=== PATIENT | female | born 1990 | race Caucasian/White ===

== ENCOUNTER 2016-06-26 22:40 | Emergency (ER) | payer OTHER ==
[2016-06-26 22:52] VITALS: TEMP 98.2
[2016-06-27] MEDS ORDERED: METOCLOPRAMIDE 10 MG/2 ML VIAL IVP ONE (00:30)
[2016-06-27] MEDS ORDERED: NS 1,000 ML IV ONE (00:30)
[2016-06-27] MEDS ORDERED: ONDANSETRON 4 MG/2 ML VIAL IVP ONE (00:30)
[2016-06-27 02:14] LABS: ALANINE AMINOTRANSFERASE 27 IU/L (9-52); ALBUMIN 3.6 g/dL (3.5-5.0); ALKALINE PHOSPHATASE 30 IU/L (38-126); ANION GAP 9 mEq/L (8-16); ASPARTATE AMINOTRANSFERASE 21 IU/L (14-46); BILIRUBIN-CONJUGATED 0.4 mg/dL (0.0-0.5); BILIRUBIN-UNCONJUGATED 0.6 mg/dL (0.0-1.1); CARBON DIOXIDE 24 mEq/l (22-31); CHLORIDE 106 mEq/L (97-110); CREATININE 0.7 mg/dL (0.6-1.0); GLOMERULAR FILTRATION RATE > 60; GLUCOSE 74 mg/dL (70-100); POTASSIUM 3.7 mEq/L (3.5-5.2); SODIUM 139 mEq/L (134-144); TOTAL PROTEIN 6.2 g/dL (6.3-8.2)
[2016-06-27 02:26] LABS: % IMMATURE GRANULYOCYTES 0.2 % (0.0-1.1); ABSOLUTE IMMATURE GRANULOCYTES 0.02 10^3/uL (0.00-0.10); ADD DIFF? NO; ADD MORPH? NO; ADD SCAN? NO; ATYPICAL LYMPHOCYTE FLAG 20 (0-99); FRAGMENT RBC FLAG 0 (0-99); HEMATOCRIT 37.4 % (38.0-47.0); HEMOGLOBIN 12.6 g/dL (12.6-16.3); LEFT SHIFT FLG 0 (0-99); LIPEMIA HEMOLYSIS FLAG 80 (0-99); MEAN CELL HEMOGLOBIN 31.6 pg (27.9-34.1); MEAN CELL HEMOGLOBIN CONCENTR. 33.7 g/dL (32.4-36.7); MEAN CELL VOLUME 93.7 fL (81.5-99.8); MEAN PLATELET VOLUME 10.5 fL (8.7-11.7); PLATELET CLUMPS FLAG 20 (0-99); PLATELET COUNT 264 10^3/uL (150-400); RED BLOOD CELL COUNT 3.99 10^6/uL (4.18-5.33); RED CELL DISTRIBUTION WIDTH 12.2 % (11.5-15.2)
--- NOTE | 2016-06-27 03:34 | EDPHY ---
H & P Stated Complaint: N,V,D, ABD PAIN SEEN AT 06/22 FOR SAME Time Seen by Provider: 06/27/16 00:02 HPI/ROS: HPI The patient presents with nausea and vomiting which have been present for the last 3 weeks. It is making it difficult for her to eat or drink anything over the last few days. She has only been able to take small amounts of fluid she says. She says after she takes something by mouth, she often vomits. This is not associated with any vomiting. She was seen at a hospital in [place] a few days ago and given IV fluids with some improvement in her symptoms, however they have returned. She is also complaining of vaginal pain which she says feels like a cramping in her vagina without any discharge that she is aware of. She did have unprotected sex about 2 weeks ago before her symptoms started. REVIEW OF SYSTEMS Constitutional: No fever, no chills. Eyes: No discharge. ENT: No sore throat. Cardiovascular: No chest pain, no palpitations. Respiratory: No cough, no shortness of breath. Gastrointestinal: See HPI Genitourinary: No hematuria. Musculoskeletal: No back pain. Skin: No rashes. Neurological: No headache. PMHx: Major depressive disorder, has required ECT Soc Hx: Housed, denies drug use PHYSICAL General Appearance: Alert, no distress, poor eye contact, slow speech Eyes: Pupils equal and round no pallor or injection ENT, Mouth: Mucous membranes moist Respiratory: There are no retractions, lungs are clear to auscultation Cardiovascular: Regular rate and rhythm Gastrointestinal: Abdomen is soft and non-tender, no masses, bowel sounds normal Genitourinary demonstrates normal appearing vaginal mucosa and external vagina, cervix is normal Neurological: A&O, moves all extremities Skin: Warm and dry, no rashes Musculoskeletal: Neck is supple non tender Extremities: symmetrical, full range of motion Psychiatric: Patient is oriented X 3, there is no agitation Source: Patient Exam Limitations: No limitations - Personal History LMP (Females 10-55): Now Current Tetanus/Diphtheria Vaccine: Yes Current Tetanus Diphtheria and Acellular Pertussis (TDAP): Yes - Medical/Surgical History Hx Asthma: No Hx Chronic Respiratory Disease: No Hx Diabetes: No Hx Cardiac Disease: No Hx Renal Disease: No Hx Cirrhosis: No Hx Alcoholism: No Hx HIV/AIDS: No Hx Splenectomy or Spleen Trauma: No Other PMH: depression/bipolar, anxiety, BPD, ACL surgery, spinal fusion, neck fx - Social History Smoking Status: Never smoked Constitutional: Initial Vital Signs Temperature (C) 36.8 C 06/26/16 22:47 Heart Rate 52 L 06/26/16 22:47 Respiratory Rate 16 06/26/16 22:47 Blood Pressure 102/64 06/26/16 22:47 O2 Sat (%) 100 06/26/16 22:47 O2 Delivery Mode Room Air Allergies/Adverse Reactions: cefaclor [From Ceclor] Allergy (Verified 06/26/16 22:52) Sulfa (Sulfonamide Antibiotics) Allergy (Verified 06/26/16 22:52) Home Medications: Medication Instructions Recorded Bimatoprost [Latisse] 3 ml TP HS 01/09/16 Divalproex ER [Depakote ER 500 MG 500 mg PO HS 01/09/16 (*)] Gabapentin [Neurontin 300 MG (*)] 300 mg PO TID 01/09/16 Lou Root 550 mg PO DAILY PRN 01/09/16 Herbals/Supplements -Info Only 1 ea PO DAILY 01/09/16 [place] Carbonate ER [Lithobid 300 300 mg PO BID 01/09/16 mg (*)] Vitamin A/Vit C/Zinc/Propolis 15 mg PO PRN PRN 01/09/16 [Zinc 15 mg Lozenges] Lurasidone HCl [Latuda] 40 mg PO DAILY@0800 #30 tab 01/11/16 Promethazine HCl [Phenergan 12.5mg 12.5 mg PO Q12H PRN #10 tablet 06/27/16 tab] Medical Decision Making Differential Diagnosis: This is a 25-year-old female with history of major depressive disorder who presents from home with 3 weeks of progressive nausea and vomiting. On exam, she is well-appearing with a benign abdominal exam. She appears well hydrated. Differential diagnosis includes viral gastroenteritis, toxin mediated enterocolitis, lithium toxicity, less likely [employer] pathology given no focal neurologic deficits or headache. In the emergency room, patient was given IV fluids and observed for several hours. She had no vomiting here. Labs were checked and were unremarkable except for a slightly elevated lithium level which I doubt is the cause of her symptoms. She felt better in the ER. I will discharge her with a prescription for Phenergan. Have asked her to follow up with her primary care doctor. - Data Points Laboratory Results: Laboratory Results 06/27/16 02:20 06/27/16 01:27 06/27/16 06/27/16 06/27/16 04:10 03:40 02:20 WBC RBC Hgb Hct MCV MCH MCHC RDW Plt Count MPV Neut % (Auto) Lymph % (Auto) [place] % (Auto) Eos % (Auto) Baso % (Auto) Nucleat RBC Rel Count Absolute Neuts (auto) Absolute Lymphs (auto) Absolute Monos (auto) Absolute Eos (auto) Absolute Basos (auto) Absolute Nucleated RBC Immature Gran % Immature Gran # Sodium Potassium Chloride Carbon Dioxide Anion Gap BUN Creatinine Estimated GFR Glucose Calcium Total Bilirubin Conjugated Bilirubin Unconjugated Bilirubin AST ALT Alkaline Phosphatase Total Protein Albumin Lipase Beta HCG, Qual Urine Color YELLOW Urine Appearance CLEAR Urine pH 7.0 (5.0-7.5) Ur Specific [place] 1.003 (1.002-1.030) Urine Protein NEGATIVE (NEGATIVE) Urine Ketones NEGATIVE (NEGATIVE) Urine Blood 1+ H (NEGATIVE) Urine Nitrate NEGATIVE (NEGATIVE) Urine Bilirubin NEGATIVE (NEGATIVE) Urine Urobilinogen NEGATIVE EU EU (0.2-1.0) Ur Leukocyte Esterase NEGATIVE (NEGATIVE) Urine RBC 1-3 /hpf /hpf (0-3) Urine WBC 1-3 /hpf /hpf (0-3) Ur Epithelial Cells TRACE /lpf /lpf (NONE-1+) Urine Glucose NEGATIVE (NEGATIVE) [place] 1.5 mEq/L H mEq/L (0.6-1.2) C.trachomatis RNA (TMA) Pending N.gonorrhoeae RNA (TMA) Pending 06/27/16 06/27/16 06/27/16 02:20 02:20 01:27 WBC 10.44 10^3/uL H 10^3/uL (3.80-9.50) RBC 3.99 10^6/uL L 10^6/uL (4.18-5.33) Hgb 12.6 g/dL g/dL (12.6-16.3) Hct 37.4 % L % (38.0-47.0) MCV 93.7 fL fL (81.5-99.8) MCH 31.6 pg pg (27.9-34.1) MCHC 33.7 g/dL g/dL (32.4-36.7) RDW 12.2 % % (11.5-15.2) Plt Count 264 10^3/uL 10^3/uL (150-400) MPV 10.5 fL fL (8.7-11.7) Neut % (Auto) 44.6 % % (39.3-74.2) Lymph % (Auto) 42.9 % % (15.0-45.0) [place] % (Auto) 8.1 % % (4.5-13.0) Eos % (Auto) 3.8 % % (0.6-7.6) Baso % (Auto) 0.4 % % (0.3-1.7) Nucleat RBC Rel Count 0.0 % % (0.0-0.2) Absolute Neuts (auto) 4.65 10^3/uL 10^3/uL (1.70-6.50) Absolute Lymphs (auto) 4.48 10^3/uL H 10^3/uL (1.00-3.00) Absolute Monos (auto) 0.85 10^3/uL H 10^3/uL (0.30-0.80) Absolute Eos (auto) 0.40 10^3/uL 10^3/uL (0.03-0.40) Absolute Basos (auto) 0.04 10^3/uL 10^3/uL (0.02-0.10) Absolute Nucleated RBC 0.00 10^3/uL 10^3/uL (0-0.01) Immature Gran % 0.2 % % (0.0-1.1) Immature Gran # 0.02 10^3/uL 10^3/uL (0.00-0.10) Sodium Potassium Chloride Carbon Dioxide Anion Gap BUN Creatinine Estimated GFR Glucose Calcium Total Bilirubin Conjugated Bilirubin Unconjugated Bilirubin AST ALT Alkaline Phosphatase Total Protein Albumin Lipase Beta HCG, Qual NEGATIVE REJ Urine Color Urine Appearance Urine pH Ur Specific [place] Urine Protein Urine Ketones Urine Blood Urine Nitrate Urine Bilirubin Urine Urobilinogen Ur Leukocyte Esterase Urine RBC Urine WBC Ur Epithelial Cells Urine Glucose [place] C.trachomatis RNA (TMA) N.gonorrhoeae RNA (TMA) 06/27/16 06/27/16 01:27 01:27 WBC REJ RBC REJ Hgb REJ Hct REJ MCV REJ MCH REJ MCHC REJ RDW REJ Plt Count REJ MPV REJ Neut % (Auto) REJ Lymph % (Auto) REJ [place] % (Auto) REJ Eos % (Auto) REJ Baso % (Auto) REJ Nucleat RBC Rel Count REJ Absolute Neuts (auto) REJ Absolute Lymphs (auto) REJ Absolute Monos (auto) REJ Absolute Eos (auto) REJ Absolute Basos (auto) REJ Absolute Nucleated RBC REJ Immature Gran % REJ Immature Gran # REJ Sodium 139 mEq/L mEq/L (134-144) Potassium 3.7 mEq/L mEq/L (3.5-5.2) Chloride 106 mEq/L mEq/L (97-110) Carbon Dioxide 24 mEq/l mEq/l (22-31) Anion Gap 9 mEq/L mEq/L (8-16) BUN 3 mg/dL L mg/dL (7-23) Creatinine 0.7 mg/dL mg/dL (0.6-1.0) Estimated GFR > 60 Glucose 74 mg/dL mg/dL (70-100) Calcium 9.0 mg/dL mg/dL (8.5-10.4) Total Bilirubin 1.0 mg/dL mg/dL (0.1-1.4) Conjugated Bilirubin 0.4 mg/dL mg/dL (0.0-0.5) Unconjugated Bilirubin 0.6 mg/dL mg/dL (0.0-1.1) AST 21 IU/L IU/L (14-46) ALT 27 IU/L IU/L (9-52) Alkaline Phosphatase 30 IU/L L IU/L (38-126) Total Protein 6.2 g/dL L g/dL (6.3-8.2) Albumin 3.6 g/dL g/dL (3.5-5.0) Lipase 108.0 IU/L IU/L (23-300) Beta HCG, Qual Urine Color Urine Appearance Urine pH Ur Specific [place] Urine Protein Urine Ketones Urine Blood Urine Nitrate Urine Bilirubin Urine Urobilinogen Ur Leukocyte Esterase Urine RBC Urine WBC Ur Epithelial Cells Urine Glucose [place] C.trachomatis RNA (TMA) N.gonorrhoeae RNA (TMA) Medications Given: Discontinued Medications Sodium Chloride (Ns) 1,000 mls @ 0 mls/hr IV ONCE ONE PRN Reason: Wide Open Stop: 06/27/16 00:31 Last Admin: 06/27/16 01:41 Dose: 1,000 mls Metoclopramide HCl (Reglan Injection) 10 mg IVP EDNOW ONE Stop: 06/27/16 00:31 Last Admin: 06/27/16 01:41 Dose: 10 mg Ondansetron HCl (Zofran) 4 mg IVP EDNOW ONE Stop: 06/27/16 00:31 Last Admin: 06/27/16 01:41 Dose: 4 mg Departure - Departure Disposition: Home, Routine, Self-Care Clinical Impression: Severe major depression, Nausea & vomiting Condition: Good Instructions: Acute Nausea and Vomiting (ED) Additional Instructions: Please make sure to drink plenty of fluids, clear liquids are recommended. Referrals: Sara Teixeira [Primary Care Provider] - As per Instructions Prescriptions: Promethazine HCl [Phenergan 12.5mg tab] 12.5 mg PO Q12H PRN #10 tablet PRN Reason: Nausea/Vomiting, Can'T Take Po
[2016-06-27 03:44] LABS: LITHIUM 1.5 mEq/L (0.6-1.2)
[2016-06-27 03:55] VITALS: BP 103/60; PULSE 63; RESP 16; O2SAT 94
[2016-06-27 04:26] LABS: COLOR YELLOW; LEUKOCYTE ESTERASE,URINE NEGATIVE (NEGATIVE); NITRITE,URINE NEGATIVE (NEGATIVE)
[2016-06-27 13:15] LABS: CHLAMYDIA AMPLIFICATION GENPRB NEGATIVE (NEGATIVE)
== END 2016-06-27 04:14 | disposition home or self-care (01) ==
DX: R11.2 Nausea with vomiting, unspecified (principal); F32.2 Major depressive disorder, single episode, severe without psychotic features
CPT/HCPCS: 96374; J2405; J2765

== ENCOUNTER 2016-09-23 16:45 | Inpatient (IN) | payer OTHER ==
--- NOTE | 2016-09-23 18:11 | SOAPPROG ---
SOAP Progress Note Assessment/Plan: Assessment:Patient with bipolar disorder type II most recent episode depressed and borderline personality disorder reporting constant SI, but she recently attempted suicide after her boyfriend broke up with her. She has abandonment issues. She has been working on DBT and CBT skills with her private psychologist , but she reports not remembering any after previously learning them at [facility] where everyone on the staff, especially the psychiatrist, were incompetent. She left the interview when she reportedly heard her parents voices. They had come to visit. Plan: Will encourage to relearn some DBT skills or at least to use the skills she has been working with her therapist on. Will continue current medications. 09/23/16 18:07 09/23/16 18:11 Subjective: See dictation. Objective: Vital Signs Temp Pulse Resp BP Pulse Ox 36.5 C 51 L 14 119/56 L 99 09/23/16 17:17 09/23/16 17:17 09/23/16 17:17 09/23/16 17:17 09/23/16 17:17 ICD10 Worksheet Patient Problems: Problems Problem Status Onset Severe major depression Acute
[2016-09-23] MEDS ORDERED: OLANZapine DISINTEGR 10 MG TAB PO PRN (18:13)
[2016-09-23] MEDS ORDERED: MAGNESIUM HYDROXIDE 30 ML UDCUP PO PRN (18:13)
[2016-09-23] MEDS ORDERED: MAG HYDROX/AL HYDROX/SIMETH 30 ML UDCUP PO PRN (18:13)
[2016-09-23] MEDS ORDERED: GABAPENTIN 300 MG CAP ONE (19:55)
[2016-09-23] MEDS: GABAPENTIN 300 MG CAP PO SCH (19:56)
[2016-09-23] MEDS: LITHIUM CARBONATE 300 MG CAP PO SCH (19:56)
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
[2016-09-23] MEDS: MELATONIN 3 MG TAB PO SCH (20:22)
[2016-09-24] MEDS ORDERED: LURASIDONE HCL 40 MG TAB PO SCH (08:00)
[2016-09-24] MEDS: LITHIUM CARBONATE 300 MG CAP PO SCH ×3 (09:01→17:12)
[2016-09-24] MEDS: GABAPENTIN 300 MG CAP PO SCH ×3 (09:01→17:12)
[2016-09-24] MEDS: BENZTROPINE MESYLATE 1 MG TAB PO SCH ×2 (13:30→20:46)
[2016-09-24] MEDS: [UNRECOGNIZED DRUG - OTHER] PO SCH (13:31)
--- NOTE | 2016-09-24 15:47 | SOAPPROG ---
SOAP Progress Note Assessment/Plan: Assessment: Plan: 09/24/16 15:48 High lethality suicide attempt. Pt remains depressed. I will consider med changes, engage in therapies. She remains at high imminent risk for completed suicide. Subjective: Pt seen, discussed with staff, chart reviewed. She describes events preceding suicide attempt and admission. When asked how she feels about this now, she states, "I'm just mad it didn't work." She admits to planning to take the OD prior to that day and choosing that day because she would be alone all afternoon. She states she drank specifically because she researched that alcohol would increase lethality of combination of meds. She also states she did not disclose these thoughts or plans to her friend or her friend's mother who were staying with her daily for the purpose of supervising her to provide support. She also dis not disclose these thoughts to her therapist. She then states she wants to be discharged SHAHLA to return to the same circumstances. We reviewed her medications and she agrees to return to pre-admission doses. Objective: Vital Signs Temp Pulse Resp BP Pulse Ox 37.0 C 54 L 16 100/50 L 97 09/24/16 06:00 09/24/16 06:00 09/24/16 06:00 09/24/16 06:00 09/24/16 06:00 MSE: Moderately anxious, reserved. Not as outgoing and talkative as usual. Affect is dysphoric, blunted, stable. Mood is "depressed." TP linear. TC reveals no psychosis. States, "I am not suicidal any more." - Time Spent With Patient Time Spent With Patient: 25" - Pending Discharge Pending Discharge Within 24 Hours: No Pending Discharge Within 48 Hours: No ICD10 Worksheet Patient Problems: Problems Problem Status Onset Severe major depression Acute
--- NOTE | 2016-09-24 16:25 | BCON ---
[f rep st] BEHAVIORAL HEALTH CONSULTATION INTERNAL MEDICINE CONSULTATION DATE OF CONSULTATION: 09/24/2016 REFERRING PHYSICIAN: Dr. Cloud. REASON FOR REFERRAL: Medical clearance for inpatient behavioral health stay. HISTORY OF PRESENT ILLNESS: This patient came to [facility] from an outside hospital, where she had been treated for an intentional overdose with unconsciousness. She was intubated briefly for airway protection, and subsequently was stabilized and was evaluated by Mental Health, and referral was arranged to [facility], Inpatient Behavioral Health. She had overdosed on propranolol as well as several of her other medications, including valproic acid. Additionally, she had had some alcohol, though her blood alcohol level was not markedly elevated at 0.064 mg/dL. She currently complains of occasional cough and of right chest pain which radiates superiorly to her neck and her ear. The pain interferes with her ability to attain sleep, though when she does get to sleep, she sleeps well and does not awake with pain, cough, or dyspnea. Cough it is not productive and she denies dyspnea. PAST MEDICAL HISTORY: 1. Mental health issues with diagnosis of bipolar disorder. 2. Chronic pain in her back due to a vertebral fracture in a rock-climbing accident. 3. Chronic insomnia. 4. Anterior cruciate ligament tear. PAST SURGICAL HISTORY: 1. Spinal fusion following vertebral fracture. 2. Anterior cruciate ligament repair. MEDICATIONS: Prior to admission: 1. Zinc lozenges p.r.n. 2. Lurasidone 40 mg p.o. daily. 3. [place] 300 mg p.o. twice daily. 4. Lou root p.r.n. 5. Gabapentin 300 mg p.o. three times daily. 6. Divalproex ER 500 mg p.o. at bedtime. 7. Bimatoprost 3 mL topical at bedtime. ALLERGIES: Listed to sulfa antibiotics and to Cefaclor. SOCIAL HISTORY: She lives with a roommate. She is not currently working. She is a nonsmoker. She uses occasional alcohol. FAMILY HISTORY: Noncontributory. REVIEW OF SYSTEMS: Other than as in HPI, she reports some chronic difficulty with urination following her vertebral fracture, and there is no change in this. She reports her weight has been stable. She denies fevers or chills. She denies nausea, vomiting, constipation, or diarrhea. She reports a good appetite. She denies joint swelling or joint pain. She denies skin rash or skin breakdown. She denies snoring. Otherwise, a 10-point review of systems is negative. PHYSICAL EXAM: VITAL SIGNS: Blood pressure at 6 o'clock this morning was 100/ 50, heart rate was 54, respiratory rate was 16, oxygen saturation was 97% on room air. Temperature was 37 degrees centigrade. Her weight is 60.5 kg for a body mass index of 25.6. GENERAL: This is a well-nourished, well-developed woman who appears her chronologic age. Cooperative and in no acute distress. HEENT: Extraocular movements are intact. Pupils are equal, round, and reactive to light. Mucous membranes are moist. Dentition is in good condition. She has a moderately crowded airway, Mallampati class 3. NECK: Supple. HEART: There is a regular rate and rhythm with no murmurs, rubs, or gallops. LUNGS: Clear to auscultation bilaterally. She has an occasional, nonproductive cough. ABDOMEN: Soft, nontender, nondistended with normoactive bowel sounds. EXTREMITIES: There is no cyanosis, clubbing, or edema. NEUROLOGIC: She is alert and oriented x3. Cranial nerves 2-12 are grossly intact. There is no focal weakness. Sensation is intact to light touch. Gait is within normal limits. LABORATORY STUDIES: From her outside hospitalization, CBC was within normal limits. Basic metabolic profile was within normal limits. ASSESSMENT AND RECOMMENDATIONS: 1. Mental health issues. Pending further evaluation and management per Psychiatry and the mental health team. 2. Intentional overdose. She shows no signs of continued toxicity. 3. Cough and right chest pain, unclear etiology. Does not seem consistent with pneumonia; however, because she was intubated, I will order a chest x-ray to evaluate further. 4. Insomnia. Discussed her use of melatonin. She reports she takes 15 mg per day. Advised that melatonin is typically good for a few days, and then ceases to have much effect due to receptor down regulation, which would explain why she is on a larger dose than the usual 3 mg [id number] dose. Advised that she discuss insomnia further with Psychiatry regarding optimal management, including management of her history of bipolar disorder. 5. Chronic pain. She reports that she tolerates this. Query whether gabapentin has been prescribed for this purpose. I see no medical contraindications to this patient's continued stay in the inpatient behavioral health unit or to any psychiatric medications or procedures. Thank you very much for including me in the care of this patient. Please do not hesitate to contact me or the hospitalist service should there be need for further medical evaluation. /[id number]/MODL MTDD
[2016-09-24] MEDS: MELATONIN 3 MG TAB PO SCH (20:46)
[2016-09-24] MEDS: ACETAMINOPHEN 325 MG TAB PO PRN (23:48)
[2016-09-25] MEDS: ACETAMINOPHEN 325 MG TAB PO PRN (05:49)
[2016-09-25] MEDS: LITHIUM CARBONATE 300 MG CAP PO SCH ×3 (08:44→16:36)
[2016-09-25] MEDS: [UNRECOGNIZED DRUG - OTHER] PO SCH (08:44)
[2016-09-25] MEDS: LURASIDONE HCL 40 MG TAB PO SCH (08:44)
[2016-09-25] MEDS: GABAPENTIN 300 MG CAP PO SCH ×3 (08:45→16:36)
[2016-09-25] MEDS: BENZTROPINE MESYLATE 1 MG TAB PO SCH ×2 (08:45→20:57)
[2016-09-25] MEDS: VITAMIN D3 PO SCH (16:31)
[2016-09-25] MEDS: OMEGA PO SCH (16:31)
[2016-09-25] MEDS: METOPROLOL SUCCINATE XR 25 MG TAB PO SCH (16:35)
--- NOTE | 2016-09-25 17:48 | SOAPPROG ---
[facility] Progress Note Assessment/Plan: Assessment: Plan: 09/24/16 15:48 High lethality suicide attempt. Pt remains depressed. I will consider med changes, engage in therapies. She remains at high imminent risk for completed suicide. 09/25/16 17:47 Brighter today. Med changes as above. Will monitor this and continue d/c planning. Subjective: Pt seen, discussed with staff. Brighter today, smiling and interactive. Less isolative, attending all groups yesterday and today and socializing in milieu. States she feel "a lot better." We reviewed her meds again and she is agreeable to trial of mirtazapine for mood and sleep and metoprolol for anxiety and tremor. The risks, benefits and alternatives of this are reviewed with her. Objective: Vital Signs Temp Pulse Resp BP Pulse Ox 36.4 C 82 14 117/67 100 09/25/16 06:00 09/25/16 16:35 09/25/16 06:00 09/25/16 16:35 09/25/16 06:00 MSE: Calm, coop. Affect is brighter, stable, approp. Mood is "better." TP linear. TC reveals no psychosis. Reports no SI to me now, but reported 4/10 this morning on self-report. - Time Spent With Patient Time Spent With Patient: 25" ICD10 Worksheet Patient Problems: Problems Problem Status Onset Severe major depression Acute
[2016-09-25] MEDS ORDERED: METOPROLOL SUCCINATE XR 50 MG TAB PO SCH (18:00)
[2016-09-25] MEDS: IBUPROFEN 600 MG TAB PO PRN (20:57)
[2016-09-25] MEDS: MIRTAZAPINE 15 MG TAB PO SCH (20:57)
[2016-09-26] MEDS: IBUPROFEN 600 MG TAB PO PRN ×2 (05:47→21:46)
[2016-09-26] MEDS: [UNRECOGNIZED DRUG - OTHER] PO SCH (08:34)
[2016-09-26] MEDS: BENZTROPINE MESYLATE 1 MG TAB PO SCH ×2 (08:35→20:45)
[2016-09-26] MEDS: GABAPENTIN 300 MG CAP PO SCH ×3 (08:35→17:58)
[2016-09-26] MEDS: LITHIUM CARBONATE 300 MG CAP PO SCH ×3 (08:35→18:01)
[2016-09-26] MEDS: OMEGA PO SCH (08:36)
[2016-09-26] MEDS: LURASIDONE HCL 40 MG TAB PO SCH (08:37)
[2016-09-26] MEDS: VITAMIN D3 PO SCH (08:37)
--- NOTE | 2016-09-26 12:33 | SOAPPROG ---
SOAP Progress Note Assessment/Plan: Assessment: Plan: 09/24/16 15:48 High lethality suicide attempt. Pt remains depressed. I will consider med changes, engage in therapies. She remains at high imminent risk for completed suicide. 09/25/16 17:47 Brighter today. Med changes as above. Will monitor this and continue d/c planning. 09/26/16 12:33 Continued improvement. CCM. Possible d/c tomorrow if all is well. F/u is in place. Subjective: Pt seen, discussed with staff. Reports feeling "better" today. Slept well with mirtazapine last night, though states she feels sleepy today. She reports no active SI at this time. States she is looking forward to seeing her therapist on Saturday. She also states she will f/u with [facility]. Objective: Vital Signs Temp Pulse Resp BP Pulse Ox 37.1 C 44 L 14 102/53 L 100 09/26/16 05:52 09/26/16 05:52 09/26/16 05:52 09/26/16 05:52 09/26/16 05:52 MSE: Calm, coop. Affect is slightly blunted, stable, approp. Mood is "better. " TP linear. TC reveals no psychosis. Denies current SI. - Time Spent With Patient Time Spent With Patient: 25" ICD10 Worksheet Patient Problems: Problems Problem Status Onset Severe major depression Acute
[2016-09-26] MEDS: METOPROLOL SUCCINATE XR 25 MG TAB PO SCH (17:58)
[2016-09-26] MEDS: MIRTAZAPINE 15 MG TAB PO SCH (20:45)
[2016-09-27 06:24] VITALS: BP 93/54; PULSE 118; RESP 12; TEMP 98.3; O2SAT 98
[2016-09-27] MEDS: LITHIUM CARBONATE 300 MG CAP PO SCH ×2 (08:43→12:54)
[2016-09-27] MEDS: BENZTROPINE MESYLATE 1 MG TAB PO SCH (08:43)
[2016-09-27] MEDS: [UNRECOGNIZED DRUG - OTHER] PO SCH (08:43)
[2016-09-27] MEDS: OMEGA PO SCH (08:43)
[2016-09-27] MEDS: GABAPENTIN 300 MG CAP PO SCH ×2 (08:43→12:54)
[2016-09-27] MEDS: VITAMIN D3 PO SCH (08:44)
[2016-09-27] MEDS: LURASIDONE HCL 40 MG TAB PO SCH (08:44)
--- NOTE | 2016-09-27 18:40 | BDS ---
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 [facility] we had a protracted course of ECT that did seem to be helpful in part, but then eventually tapered off and was discontinued more than 6 months ago. Since that time, the patient reports getting medications from her primary care physician and reported a generally stable, though marginal mood. She reports, however, about 1 month prior to admission her boyfriend broke up with her, and she became acutely despondent. She states her best friend came to live with her to help her and to more or less watch over her due to her suicidal thoughts. She states that the best friend's mother also was helping out. Despite this, she took an overdose of propranolol and alcohol and was hospitalized in the ICU. A full description of the events preceding admission can be found in her admission history per Dr. Cloud dated 09/23/2016. ADMISSION DIAGNOSES: Diagnoses per Dr. Cloud: 1. Bipolar 2 disorder, most recent episode depressed, severe, without psychosis. 2. Borderline personality disorder. 3. Status post overdose. 4. Break up with boyfriend. 5. Conflict with family. 6. Unemployment. 7. Lack of services. ADMISSION PHYSICAL EXAMINATION: Done by Dr. Rasta Trujillo revealed a cough. No other acute physical findings. ADMISSION LABORATORY: No additional labs were drawn. Labs from medical hospitalization were reviewed. HOSPITAL COURSE: Patient was admitted to the [facility] inpatient unit on an M1 hold. She was guarded, dysphoric, and demonstrated significant psychomotor retardation. She interacted well with me as she is well acquainted but remained fairly despondent. We discussed the circumstances of her overdose, and I noted numerous factors that were concerning for lethality of the attempt and her intent. We reviewed this and discussed potential medication changes. She was agreeable to a trial of Remeron to help with sleep, and this was started at 15 mg. She tolerated this well with no side effects. It did significantly improve her sleep. She went from unrestful for 4 hours to a restful 7-8 hours. We also restarted the metoprolol and replaced with propranolol for her chronic tremor and anxiety. Hopefully, this will have less negative affect on her mood. Patient's hospital course was uncomplicated. She engaged actively in all requested therapies and brightened on a daily basis. By the time of the expiration of her M1 hold, she was agreeable to staying for further involuntary treatment. I met with her on a daily basis and was able to, I believe, do some good work in psychotherapy in reframing her experience and motivating her for future recovery. She identified goals of being more outgoing and active and of moving past this relationship that was likely negative in most ways anyway. She tolerated her medicines well with no side effects and was compliant with all medication treatments throughout. On the day of discharge, patient's affect was bright, full. She was laughing and joking and she was forward thinking and hopeful. She was adamantly disavowing any active thoughts of suicide, stating that she had no intention to harm herself in the foreseeable future. CONDITION ON DISCHARGE: Stable. Her affect was euthymic, stable, and appropriate. She was forward thinking and hopeful. She was compliant with all medications and looking forward to followup. She denied any active suicidal ideation at time of discharge. DISCHARGE MEDICATIONS: Cogentin 1 mg p.o. b.i.d., Depakote ER 750 mg daily, Neurontin 300 mg t.i.d., lithium carbonate 300 mg t.i.d., and Latuda 100 mg daily. DISCHARGE DIAGNOSES: 1. Bipolar 2 disorder, most recent episode depressed, severe, without psychosis. 2. Status post overdose. 3. Chronic illness. 4. Family conflict. 5. Recent break-up with boyfriend. DISPOSITION: Patient left the hospital with her family to return to her home. FOLLOWUP: With her therapist as scheduled the day after discharge, her primary care physician the following week, and [facility] on the day after discharge also at 0900. Patient is encouraged to keep the [facility] appointment as she might be able to arrange followup with a psychiatrist, as well. LEGAL COURSE: Patient was converted to a voluntary status at the expiration of her M1 hold. /[id number]/MODL MTDD
== END 2016-09-27 13:05 | disposition home or self-care (01) | DRG 885 ==
LOC: BBEH 16:45
PROVIDERS: ADMIT Psychiatry & Neurology Psychiatry; ATTEND Psychiatry & Neurology Psychiatry
DX: F31.4 Bipolar disorder, current episode depressed, severe, without psychotic features (principal); F60.3 Borderline personality disorder; R05 Cough; R07.9 Chest pain, unspecified; G47.00 Insomnia, unspecified; G89.29 Other chronic pain; Z73.9 Problem related to life management difficulty, unspecified; Z56.0 Unemployment, unspecified